=== PATIENT | male | born 1975 | race Caucasian/White ===

== ENCOUNTER 2022-09-17 00:14 | Day surgery (SDC) | payer OTHER, SELFPAY ==
[2022-09-10 13:19] VITALS: BMI 37.8
[2022-09-17 07:44] VITALS: BP 146/89; PULSE 66; RESP 18; TEMP 36.3; O2SAT 100
--- NOTE | 2022-09-17 07:49 | P.PNAN_ITS ---
Anes - Initial Pre Proc Eval Procedure: Operation Date: 09/17/22 09:00 Proposed Procedures p Colonoscopy - Simon Yeung MD Date/Time: 09/17/22 07:49 Surgeon: Simon Yeung MD Pre Op Diagnosis: positive cologuard Patient Data Age: 47 Gender: M Height: 1.73 m Weight: 114.1 kg Last Vital Signs Temp 36.3 C L 09/17/22 07:44 Pulse 66 09/17/22 07:44 Resp 18 09/17/22 07:44 BP 146/89 H 09/17/22 07:44 Pulse Ox 100 09/17/22 07:44 O2 Del Method Room Air 09/17/22 07:44 Allergies Allergy/AdvReac Type Severity Reaction Status Date / Time No Known Allergies Allergy Verified 09/17/22 07:41 Home Medications Medication Instructions Recorded Confirmed Type amlodipine 5 mg-benazepril 20 mg 1 cap PO DAILY #90 caps 08/26/22 09/10/22 Rx capsule venlafaxine 150 mg 150 mg PO DAILY #60 caps 09/06/22 09/10/22 Rx capsule,extended release 24 hr aspirin 81 mg tablet,delayed 81 mg PO DAILY 09/10/22 09/10/22 History release lansoprazole 30 mg capsule,delayed 30 mg PO DAILY 09/10/22 09/10/22 History release (Prevacid) Patient hx anesthesia problems: none Family hx anesthesia problems: none Results Review: All pre-operative results and documents have been reviewed as part of the pre- operative evaluation. [facility] Past Medical History Medical History Anxiety Depression HTN (hypertension) Social History Social History (Updated 03/15/22 @ 13:27 by Ginny Vigil) Smoking packs per day: 0.5 Smoking cigarettes per day: 10.0 Years smoked: 17 Smoking pack-years: 8.50 Smoking status: Former smoker Tobacco type: cigarettes Second hand tobacco smoke exposure: No Smoking end date: 11/12/21 Alcohol intake: current Substance use: never Substance use type: does not use Living arrangements: with family Occupation/Education: occupation Gender identity (if verbalized by the patient): Male Spiritual care concerns: No Anes - Eval Final PreProcedure Day of Procedure 09/17/22 07:49 Patient weight: obese Heart: regular rate and rhythm Lungs: clear to auscultation and normal air movement Airway: Mallampati scale class II Neurological: alert and oriented Last oral intake: >/= 8 hours ASA classification: III Emergent: no Anesthetic plan: proceed Anesthesia type and monitoring: general GIVS Results Review: All pre-operative results and documents have been reviewed as part of the pre- operative evaluation. Informed Consent: The patient's anesthetic plan and its attendant risks and benefits were discussed with the patient/family/POA. Questions were solicited and answers provided to the satisfaction of the patient/family/POA.
[2022-09-17] MEDS: LACTATED RINGERS 1,000 ML 150 ML IV CONT (07:51)
--- NOTE | 2022-09-17 08:21 | PM.HPGS ---
History of Present Illness History of Present Illness Consent: Risks, benefits, and alternatives have been discussed and questions answered. Patient agrees to proceed with procedure. Chief complaint: positive cologuard Narrative: Harjit Bee is a 47 year old male here for first colonoscopy, had + cologuard Review of Systems Constitutional: Constitutional: Denies headache(s) and Denies weakness Eyes: Eyes: Denies blurry vision ENT: Reports Normal hearing present, Denies headache(s) and Denies neck pain Cardiovascular: Cardiovascular: Denies chest pain and Denies dyspnea Respiratory: Respiratory: Denies dyspnea Gastrointestinal: Gastrointestinal: Reports no additional gastrointestinal complaints Genitourinary: Genitourinary: Denies dysuria Musculoskeletal: Musculoskeletal: Denies neck pain Integumentary/Breasts: Skin/Breast: Denies dry skin Neurologic: Reports Normal hearing present, Denies headache(s) and Denies weakness Psychiatric: Psychiatric: Denies anxiety Endocrine: Endocrine: Denies change in body appearance Hematologic/Lymphatic: Hematologic/Lymphatic: Denies easy bleeding Allergic/Immunologic: Allergic/Immunologic: Denies urticaria PMFSH Past Medical History Medical History Anxiety Depression HTN (hypertension) Social History Social History (Updated 03/15/22 @ 13:27 by Ginny Vigil) Smoking packs per day: 0.5 Smoking cigarettes per day: 10.0 Years smoked: 17 Smoking pack-years: 8.50 Smoking status: Former smoker Tobacco type: cigarettes Second hand tobacco smoke exposure: No Smoking end date: 11/12/21 Alcohol intake: current Substance use: never Substance use type: does not use Living arrangements: with family Occupation/Education: occupation Gender identity (if verbalized by the patient): Male Spiritual care concerns: No Meds Home Medications and Allergies Home Medications Medication Instructions Recorded Confirmed Type amlodipine 5 mg-benazepril 20 mg 1 cap PO DAILY #90 caps 08/26/22 09/10/22 Rx capsule venlafaxine 150 mg 150 mg PO DAILY #60 caps 09/06/22 09/10/22 Rx capsule,extended release 24 hr aspirin 81 mg tablet,delayed 81 mg PO DAILY 09/10/22 09/10/22 History release lansoprazole 30 mg capsule,delayed 30 mg PO DAILY 09/10/22 09/10/22 History release (Prevacid) Allergies Allergy/AdvReac Type Severity Reaction Status Date / Time No Known Allergies Allergy Verified 09/17/22 07:41 Vital Signs Vital Signs - 24 hr 09/17/22 07:44 Temperature 97.3 F L Pulse Rate 66 Respiratory Rate 18 Blood Pressure 146/89 H Pulse Oximetry 100 Oxygen Delivery Room Air Exam Const: General: comfortable and no acute distress HENMT: Face/Nose/Sinus: Normal nares present Eyes: General: appearance normal, both eyes and all related structures Neck: Neck: no JVD Resp: Auscultation: clear to auscultation bilaterally Cardio: Rate: regular rate Rhythm: regular rhythm GI: Inspection: non-distended GI Palp: Yes Soft to palpation Skin: General skin exam: normal color Neuro: General: gait normal Speech: normal speech Extrem: General: normal to inspection Psych: Mental Status: mental status grossly normal Assessment and Plan Assessment and plan (1) Positive colorectal cancer screening using Cologuard test: Code(s): R19.5 - Other fecal abnormalities Status: Acute Assessment and Plan: colonoscopy
[2022-09-17 08:39] VITALS: BP 119/84; PULSE 76; RESP 18; O2SAT 97
[2022-09-17 08:49] VITALS: BP 137/91; PULSE 66; RESP 15; O2SAT 100
[2022-09-17 08:59] VITALS: BP 124/73; PULSE 70; RESP 18; O2SAT 100
== END 2022-09-17 09:09 | disposition home or self-care (01) ==
PROVIDERS: PCP Physician Assistant Medical; Visit Provider Internal Medicine Gastroenterology
PROC: 0DJD8ZZ Inspection of Lower Intestinal Tract, Via Natural or Artificial Opening Endoscopic (ICD-10-PCS; CPT 45378; principal; 2022-09-17 09:00)
DX: R19.5 Other fecal abnormalities (principal); K57.30 Diverticulosis of large intestine without perforation or abscess without bleeding; K64.8 Other hemorrhoids; I10 Essential (primary) hypertension; F41.9 Anxiety disorder, unspecified; F32.A Depression, unspecified; Z79.82 Long term (current) use of aspirin; Z87.891 Personal history of nicotine dependence; E66.9 Obesity, unspecified; Z68.38 Body mass index [BMI] 38.0-38.9, adult
CPT/HCPCS: 45378; J2704; J7120